=== PATIENT | male | born 1940 | race Caucasian/White ===

== ENCOUNTER 2018-05-17 09:20 | Inpatient (IN) ==
[2018-05-17] MEDS ORDERED: Sod Chloride 0.9% Inj 1,000 ML IV.SIG ONE (10:05)
[2018-05-17 10:21] LABS: Baso # (Auto) 0.1 th/mm3 (0.0-0.2); Eos # (Auto) 0.4 th/mm3 (0.0-0.4); Eos % (Auto) 4.6 % (0.0-4.0); Hematocrit 41.3 % (39.0-51.0); Hemoglobin 13.4 gm/dL (13.0-17.0); Lymph # (Auto) 2.2 th/mm3 (1.0-4.8); Lymph % (Auto) 22.6 % (9.0-44.0); Mean Corpuscular HGB Conc 32.4 % (32.0-36.0); Mean Corpuscular Hemoglobin 30.4 pg (27.0-34.0); Mean Corpuscular Volume 93.8 fL (80.0-100.0); Mean Platelet Volume 8.2 fL (7.0-11.0); Mono # (Auto) 0.8 th/mm3 (0.0-0.9); Mono % (Auto) 8.3 % (0.0-8.0); Neut # (Auto) 6.2 th/mm3 (1.8-7.7); Neut % (Auto) 63.5 % (16.0-70.0); Platelet Count 342 th/mm3 (150-450); Red Cell Distribution Width 12.1 % (11.6-17.2); White Blood Count 9.7 th/mm3 (4.0-11.0)
[2018-05-17 10:29] LABS: Bilirubin,Urine Negative (Negative); Clarity,Urine Cloudy (Clear); Color,Urine Yellow (Yellw/Straw); Glucose,Urine (UA) Negative (Negative); Leukocyte Esterase,Urine Moderate (Negative); Nitrite,Urine Negative (Negative); Specific Gravity,Urine Greater/Equal 1.030 (1.002-1.035); Urobilinogen,Urine 0.2 mg/dL (Less than 2)
[2018-05-17 10:34] LABS: Collection Time,Urine 1000 hours
[2018-05-17 10:35] LABS: Chloride 103 meq/L (98-107); Potassium 3.8 meq/L (3.5-5.1); Sodium 139 meq/L (136-145)
[2018-05-17 10:39] LABS: Albumin 3.9 g/dL (3.4-5.0); Anion Gap 7 meq/L (5-15); Calcium 8.6 mg/dL (8.5-10.1); Carbon Dioxide 29.3 meq/L (21.0-32.0); Glucose,Random 166 mg/dL (74-106); Lipase 78 U/L (73-393)
[2018-05-17 10:40] LABS: Blood Urea Nitrogen 21 mg/dL (7-18)
[2018-05-17 10:42] LABS: Alanine Aminotransferase 32 U/L (12-78); Aspartate Aminotransferase 22 U/L (15-37); Glomerular Filtration Rate 75 mL/min (>89)
[2018-05-17 10:45] LABS: Alkaline Phosphatase 54 U/L (45-117)
[2018-05-17 10:45] LABS: Squamous Epithelial Cell,Urine 0-5 /hpf (0-5)
[2018-05-17 10:46] LABS: Bacteria,Urine Occasional /hpf
[2018-05-17] MEDS ORDERED: Morphine Inj 4 MG/ML Vial IV.PUSH ONE (10:58)
[2018-05-17] MEDS ORDERED: Ketorolac Inj 30 MG/ML (IVP) Vial IV.PUSH ONE ×2 (10:58→18:27)
--- NOTE | 2018-05-17 11:07 | CT ---
EXAM DATE: 05/17/2018 10:52 AM EST AGE/SEX: 77 years / Male INDICATIONS: Left flank pain 2 weeks, Nausea, vomiting, diarrhea CLINICAL DATA: This is the patient's initial encounter. Patient reports that signs and symptoms have been present for 3 weeks and indicates a pain score of 10/10. MEDICAL/SURGICAL HISTORY: Diabetes. Hypertension. . Prostate surgery RADIATION DOSE: 6.31 CTDI (mGy) COMPARISON: [facility] [place] & [place]ELVIS W & W/O CONTRAST, 02/11/2015. . TECHNIQUE: Multiple contiguous axial images were obtained through the abdomen. Images were obtained using multiple row detector helical technique. Using automated exposure control and adjustment of the mA and/or kV according to patient size, radiation dose was kept as low as reasonably achievable to o btain optimal diagnostic quality images. DICOM format image data is available electronically for rev iew and comparison. Lack of IV contrast limits the diagnosis for certain organ pathology. FINDINGS: Lower Lungs: The visualized lower lungs are clear. Liver: The liver has a homogeneous density without space-occupying lesion. There is no dilation of th e biliary tree. Gallbladder is unremarkable. Spleen: Homogeneous density without enlargement. Pancreas: The pancreas is normal in size and shape. A few scattered calcifications are again noted t hroughout the pancreas. This is stable compared to the prior study. No focal or acute inflammatory ch anges are demonstrated associated with the pancreas. Kidneys: The right kidney is unremarkable. The left kidney is enlarged with perinephric edema. There is hydronephrosis of the left kidney. There is a prominent stone in the left renal pelvis measuring 1.5 x 0.8 cm. The ureters are nondilated. Adrenal Glands: Unremarkable. Aorta: Atherosclerotic changes. No aneurysmal dilatation. Bowel/Mesentery: The bowel loops are grossly unremarkable. The cecum and sigmoid colon have a normal configuration. No inflammatory changes. No free fluid or loculated fluid collections. Abdominal Wall: Intact. Retroperitoneum: No evidence of adenopathy in the retrocrural, para-aortic, or deep pelvic regions. Bladder: Contours are smooth. No stones in the bladder. Reproductive Organs: No abnormal masses or calcifications seen. Inguinal: The inguinal region is unremarkable without evidence of adenopathy. Bony Structures: Bony degenerative changes. CONCLUSION: 1. There is hydronephrosis and perinephric edema involving the left kidney. There is a prominent sto ne in the left renal pelvis measuring 1.5 x 0.8 cm. 2. A few stable calcifications are again noted in the pancreas suggestive of chronic pancreatitis. T his is unchanged from 2015. Electronically signed by: Corey Malcolm MD 05/17/2018 11:06 AM EST
--- NOTE | 2018-05-17 11:50 | ED ---
HPI General Chief Complaint: Abdominal Pain Stated Complaint: abd pain/lt flank pain/vomiting today/back pain Time Seen by Provider: 05/17/18 09:53 Source: patient Mode of arrival: ambulatory Limitations: no limitations History of Present Illness HPI narrative: Patient is a 77-year-old male, past medical history significant for hypertension, diabetes, hyper the anemia, who presents with complaint of sudden onset left flank pain that radiates to the left lower quadrant and came on suddenly at approximately 8 AM. Nothing seems to make it better or worse. It is constant but waxes and wanes in intensity. It is associated with nausea and nonbilious, nonbloody emesis. This has never happened before. complaint: Reports flank pain Onset (ago): hour(s) Pain Consistency: constant Location: Reports L flank Severity: severe Quality: Reports aching and fullness Radiation: Reports LUQ Relieving factors: nothing Exacerbating factors: nothing Associated symptoms: Reports nausea and vomiting Related Data Home Medications Medication Instructions Recorded Confirmed aspirin [Aspir-81] 81 mg PO DAILY 05/17/18 05/17/18 gabapentin 600 mg PO HS 05/17/18 05/17/18 losartan 50 mg PO BID 05/17/18 05/17/18 metformin 500 mg PO DAILY 05/17/18 05/17/18 pravastatin 40 mg PO HS 05/17/18 05/17/18 Allergies Allergy/AdvReac Type Severity Reaction Status Date / Time hydrocodone Allergy Mild Rash Verified 05/17/18 09:25 Review of Systems ROS: all other systems reviewed are negative [facility] Medical History Medical History Diabetes (Acute) Hypercholesteremia (Acute) Hypertension (Acute) Lung collapse (Acute) Neuropathy (Acute) Surgical History Surgical History History of prostate surgery (Acute) Social History Social History Substance History: No History of Abuse Second Hand Smoke Exposure: No Smoking Status: Former smoker How Often Do You Have a Drink Containing Alcohol: 2 to 3 times a week Recent Travel in [facility] within the Last 8 Weeks: No Immunization History Tetanus Immunization: <5 Years Exam Narrative Exam Narrative: GENERAL: Well-appearing male appearing in acute pain SKIN: Focused skin assessment warm/dry. HEAD: Atraumatic. Normocephalic. EYES: Pupils equal and round. No scleral icterus. No injection or drainage. ENT: No nasal bleeding or discharge. Mucous membranes pink and moist. NECK: Trachea midline. No JVD. CARDIOVASCULAR: Regular rate and rhythm. No murmur appreciated. RESPIRATORY: No accessory muscle use. Clear to auscultation. Breath sounds equal bilaterally. GASTROINTESTINAL: Abdomen soft, non-tender, nondistended. Hepatic and splenic margins not palpable. Left CVA tenderness. MUSCULOSKELETAL: No obvious deformities. No clubbing. No cyanosis. No edema. NEUROLOGICAL: Awake and alert. No obvious cranial nerve deficits. Motor grossly within normal limits. Normal speech. PSYCHIATRIC: Appropriate mood and affect; insight and judgment normal. Course Consultations Consultation #1: I spoke with Dr Brown, urologist collection card clerk, whom agreed with my plan for admission. Initial Documented Vital Signs Temperature 97.6 F 05/17/18 09:24 Pulse Rate 85 05/17/18 09:24 Respiratory Rate 16 05/17/18 09:24 Blood Pressure 189/88 H 05/17/18 09:24 Pulse Oximetry 97 05/17/18 09:24 Last Documented Vital Signs Temperature 97.6 F 05/17/18 09:24 Pulse Rate 62 05/17/18 12:15 Respiratory Rate 18 05/17/18 12:15 Blood Pressure 172/78 H 05/17/18 12:15 Pulse Oximetry 97 05/17/18 12:15 Medical Decision Making MDM Narrative Medical decision making narrative: Patient is a 77-year-old male who presents with complaint of sudden onset left flank pain with nausea and vomiting. He is feeling slightly better after morphine and Toradol. UA is concerning for infection for which he has been given Rocephin. CT does show a stone in the renal pelvis which is very large. I discussed this infected, obstructed stone with Dr. Brown whom stated that because it is in the renal pelvis, he needs more pain control and antibiotics than anything else. He has been admitted for further evaluation and management. Medical Screen Exam Complete: Yes Emergency Medical Condition: Yes Differential Diagnosis Differential Diagnosis: Differential diagnosis includes but is not limited to pyelonephritis, renal colic, AAA. Medical Records Medical records reviewed: Yes I reviewed the patient's medical records. Lab Data Lab results reviewed: Yes I reviewed the patient's lab results. Result diagrams: 05/17/18 10:08 05/17/18 10:08 Lab Results 05/17/18 05/17/18 05/17/18 Range/Units 10:00 10:08 10:08 CBC w Diff Auto diff final WBC 9.7 (4.0-11.0) th/mm3 RBC 4.40 L (4.50-5.90) mil/mm3 Hgb 13.4 (13.0-17.0) gm/dL Hct 41.3 (39.0-51.0) % MCV 93.8 (80.0-100.0) fL MCH 30.4 (27.0-34.0) pg MCHC 32.4 (32.0-36.0) % RDW 12.1 (11.6-17.2) % Plt Count 342 (150-450) th/mm3 MPV 8.2 (7.0-11.0) fL Neut % (Auto) 63.5 (16.0-70.0) % Lymph % (Auto) 22.6 (9.0-44.0) % [place] % (Auto) 8.3 H (0.0-8.0) % Eos % (Auto) 4.6 H (0.0-4.0) % Baso % (Auto) 1.0 (0.0-2.0) % Neut # (Auto) 6.2 (1.8-7.7) th/mm3 Lymph # (Auto) 2.2 (1.0-4.8) th/mm3 [place] # (Auto) 0.8 (0.0-0.9) th/mm3 Eos # (Auto) 0.4 (0.0-0.4) th/mm3 Baso # (Auto) 0.1 (0.0-0.2) th/mm3 WBC Differential . Differential Comment . Sodium 139 (136-145) meq/L Potassium 3.8 (3.5-5.1) meq/L Chloride 103 (98-107) meq/L Carbon Dioxide 29.3 (21.0-32.0) meq/L Anion Gap 7 (5-15) meq/L BUN 21 H (7-18) mg/dL Creatinine 0.97 (0.60-1.30) mg/dL Estimated GFR 75 L (>89) mL/min Random Glucose 166 H (74-106) mg/dL Calcium 8.6 (8.5-10.1) mg/dL Magnesium 2.0 (1.5-2.5) mg/dL Total Bilirubin 0.6 (0.2-1.0) mg/dL AST 22 (15-37) U/L ALT 32 (12-78) U/L Alkaline Phosphatase 54 (45-117) U/L Total Protein 8.0 (6.4-8.2) g/dL Albumin 3.9 (3.4-5.0) g/dL Lipase 78 (73-393) U/L Urine Color Yellow (Yellw/Straw) Urine Clarity Cloudy H (Clear) Urine pH 6.0 (5.0-8.5) Ur Specific [place] Greater/equal 1.030 (1.002-1.035) Urine Protein 100 H (Neg-Trace) mg/dL Urine Glucose (UA) Negative (Negative) mg/dL Urine Ketones Negative (Negative) mg/dL Urine Occult Blood Large H (Negative) Urine Nitrate Negative (Negative) Urine Bilirubin Negative (Negative) Urine Urobilinogen 0.2 (Less than 2) mg/dL Ur Leukocyte Esterase Moderate H (Negative) Urine RBC 4-15 H (0-3) /hpf Urine WBC 9-20 H (0-5) /hpf Urine WBC Clumps Few H (None) Ur Squamous Epith Cells 0-5 (0-5) /hpf Urine Bacteria Occasional H (None) /hpf Micro UA Comment Culture indicated Ur Microscopic Review Microscopic reviewed Urine Culture Comments Culture indicated Urine Collection Time 1000 hours Imaging Data Attestation: I personally reviewed and interpreted this imaging study as follows : Radiologist's impression: Abdomen/Pelvis CT 05/17/18 10:05 CONCLUSION: 1. There is hydronephrosis and perinephric edema involving the left kidney. There is a prominent stone in the left renal pelvis measuring 1.5 x 0.8 cm. 2. A few stable calcifications are again noted in the pancreas suggestive of chronic pancreatitis. This is unchanged from 2015. Discharge Plan Discharge Disposition Patient Disposition: 30 Still Patient Discharge Condition Condition: Stable Discharge Details Diagnosis: Renal calculus, left, Acute UTI Physicians Team ED Provider: Erika Barker Primary Care Provider: Vitor Lawson Attending Provider: Shad Wheeler ED Status: Admitted Patient
[2018-05-17] MEDS ORDERED: Bisacodyl 10 MG Supp RECTAL PRN (12:13)
[2018-05-17] MEDS ORDERED: Acetaminophen 325 MG Tablet PO PRN (12:13)
[2018-05-17] MEDS ORDERED: Morphine Inj 4 MG/ML Vial IV.PUSH PRN (14:06)
[2018-05-17] MEDS ORDERED: Dextrose 50% in Water 50 ML Vial IV.PUSH PRN (14:11)
[2018-05-17] MEDS: Sod Chloride 0.9% Inj 1,000 ML IV.CONT SCH ×2 (14:20→23:16)
--- NOTE | 2018-05-17 14:20 | P.HPIM ---
History of Present Illness Primary Care Physician: Vitor Lawson MD Patient is a 77M with history of DM2 and HTN presenting with LEFT sided lower back pain. Patient reports symptoms started 3 weeks ago and he thought it was due to backpain from golfing but says on day of presentation he developed a 10/ 10, sharp, severe lower back pain non radiating to the groin. Patient reports he also had nausea, non billious, non bloody emesis. Patient denied subjective fever or chills. No hematuria noted. R.O.S otherwise negative. In ED patient noted to have 1.5cm stone for which ED consulted urology for evaluation. Patient admitted to medicine for evaluation and management. Patient started on ceftriaxone and blood/urine cultures obtained. Diagnosis (1) HTN (hypertension): (2) DM2 (diabetes mellitus, type 2): Inpatient Certification Inpatient Certification: I certify that the inpatient services were ordered in accordance with Medicare regulations governing the order. This includes certification that hospital inpatient services are reasonable and necessary and in the case of services not specified as inpatient-only under 42 CFR 419.22(n), that they are appropriately provided as inpatient services in accordance to with the 2-midnight benchmark under 43 CFR 412.3(e) Estimated Total Length of Stay (Days): 3 Plans for Post Hospital Care: Home Review of Systems Review of Systems: all other systems reviewed are negative [facility] Medical History Medical History Diabetes (Acute) Hypercholesteremia (Acute) Hypertension (Acute) Lung collapse (Acute) Neuropathy (Acute) Surgical History Surgical History History of prostate surgery (Acute) Social History Social History Substance History: No History of Abuse Second Hand Smoke Exposure: No Smoking Status: Former smoker How Often Do You Have a Drink Containing Alcohol: 2 to 4 times a month Recent Travel in [facility] within the Last 8 Weeks: No Immunization History Tetanus Immunization: Unable to Assess Hx Influenza Vaccine This Season: Yes Medications and Allergies Allergies Allergy/AdvReac Type Severity Reaction Status Date / Time hydrocodone Allergy Mild Rash Verified 05/17/18 09:25 Home Medications Medication Instructions Recorded Confirmed Type aspirin [Aspir-81] 81 mg PO DAILY 05/17/18 05/17/18 History gabapentin 600 mg PO HS 05/17/18 05/17/18 History losartan 50 mg PO BID 05/17/18 05/17/18 History metformin 500 mg PO DAILY 05/17/18 05/17/18 History pravastatin 40 mg PO HS 05/17/18 05/17/18 History Active Medications: Active Medications Acetaminophen (Tylenol) 650 mg PO Q4H PRN PRN Reason: Temp > 100.4 Al Hydroxide/Mg Hydroxide (Milk Of Mellisa Liileana) 30 ml PO Q12H PRN PRN Reason: Mild Constipation Aspirin (Ecotrin) 81 mg PO DAILY ARABELLA Bisacodyl (Dulcolax Supp) 10 mg RECTAL DAILY PRN PRN Reason: SEVERE CONSITIPATION Dextrose (D50w Vial) 50 ml IV.PUSH UNSCH PRN PRN Reason: PER HYPOGLYCEMIA PROTOCOL Gabapentin (Neurontin) 600 mg PO HS [facility] Glucagon (Glucagon Inj) 1 mg OTHER PRN PRN PRN Reason: for Hypoglycemia Protocol Heparin Sodium (Porcine) (Heparin Inj) 5,000 units SQ Q8H ARABELLA Sodium Chloride (Ns Inj) 1,000 mls @ 100 mls/hr IV.CONT .Q10H ARABELLA Acetaminophen (Ofirmev Inj) 1,000 mg in 100 mls @ 400 mls/hr IV.SIG Q6H PRN PRN Reason: BREAKTHROUGH PAIN Stop: 05/18/18 08:22 Insulin Aspart (Novolog Insulin Correctional Sugar Inj) 0 unit SQ ACHS ARABELLA; Protocol Losartan Potassium (Cozaar) 50 mg PO BID [facility] Morphine Sulfate (Morphine Inj) 4 mg IV.PUSH Q4H PRN PRN Reason: PAIN SCALE 1 TO 10 Ondansetron HCl (Zofran Inj) 4 mg IV.PUSH Q6H PRN PRN Reason: NAUSEA OR VOMITING Pravastatin Sodium (Pravachol) 40 mg PO HS [facility] Senna/Docusate Sodium (Marilee-Colace) 1 tab PO BID [facility] Sennosides (Senokot) 17.2 mg PO Q12H PRN PRN Reason: Moderate Constipation Sodium Chloride (Ns Flush) 2 ml IV.FLUSH PRN PRN PRN Reason: FLUSH AFTER USING IV ACCESS Sodium Chloride (Ns Flush) 2 ml IV.FLUSH BID [facility] Sodium Chloride (Ns Flush) 2 ml IV.FLUSH PRN PRN PRN Reason: FLUSH AFTER USING IV ACCESS Physical Exam Vital signs: Last Vital Signs Temp 96.4 F L 05/17/18 13:05 Pulse 59 L 05/17/18 13:05 Resp 20 05/17/18 13:05 BP 183/80 H 05/17/18 13:05 Pulse Ox 97 05/17/18 13:05 Intake & Output 05/15/18 05/16/18 05/17/18 05/18/18 06:59 06:59 06:59 06:59 Intake Total 1100 / 1100 Balance 1100 / 1100 Weight 79 kg gen: NAD heent: EOMI, PERRLA Cardiology: S1/S2 Resp: CTA without wheezing, rhales, rhonchi GI: soft, non tender, non distended, no guarding. + bowel sounds ext: 2+ radial pulse. Urology: I did not appreciate a true CVA tenderness but he did have pain medication earlier. Results Labs CBC & Chem 7: 05/17/18 10:08 05/17/18 10:08 Imaging Impressions Abdomen/Pelvis CT 05/17/18 10:05 CONCLUSION: 1. There is hydronephrosis and perinephric edema involving the left kidney. There is a prominent stone in the left renal pelvis measuring 1.5 x 0.8 cm. 2. A few stable calcifications are again noted in the pancreas suggestive of chronic pancreatitis. This is unchanged from 2015. Caprini VTE Risk Assessment Caprini VTE Risk Assessment: No/Low Risk (score <= 1) Caprini Risk Assessment Model: Point Value = 1 Point Value = 2 Point Value = 3 Point Value = 5 Age 41-60 Minor surgery BMI > 25 kg/m2 Swollen legs Varicose veins or History of unexplained or recurrent spontaneous Oral contraceptives or hormone replacement Sepsis (< 1 month) Serious lung disease, including pneumonia (< 1 month) Abnormal pulmonary function Acute myocardial infarction Congestive heart failure (< 1 month) History of inflammatory bowel disease Medical patient at bed rest Age 61-74 Arthroscopic surgery Major open surgery (> 45 min) Laparoscopic surgery (> 45 min) Malignancy Confined to bed (> 72 hours) Immobilizing plaster cast Central venous access Age >= 75 History of VTE Family history of VTE Factor V Leiden Prothrombin [id number] Lupus anticoagulant Anticardiolipin antibodies Elevated serum homocysteine Heparin-induced thrombocytopenia Other congenital or acquired thrombophilia Stroke (< 1 month) Elective arthroplasty Hip, pelvis, or leg fracture Acute spinal cord injury (< 1 month) Prophylaxis Regimen: Total Risk Factor Score Risk Level Prophylaxis Regimen 0-1 Low Early ambulation 2 Moderate Order ONE of the following: *Sequential Compression Device (SCD) *Heparin 5000 units SQ BID 3-4 Higher Order ONE of the following medications: *Heparin 5000 units SQ TID *Enoxaparin/Lovenox 40 mg SQ daily (WT < 150 kg, CrCl > 30 mL/min) *Enoxaparin/Lovenox 30 mg SQ daily (WT < 150 kg, CrCl > 10-29 mL/min) *Enoxaparin/Lovenox 30 mg SQ BID (WT < 150 kg, CrCl > 30 mL/min) AND/OR *Sequential Compression Device (SCD) 5 or more Highest Order ONE of the following medications: *Heparin 5000 units SQ TID (Preferred with Epidurals) *Enoxaparin/Lovenox 40 mg SQ daily (WT < 150 kg, CrCl > 30 mL/min) *Enoxaparin/Lovenox 30 mg SQ daily (WT < 150 kg, CrCl > 10-29 mL/min) *Enoxaparin/Lovenox 30 mg SQ BID (WT < 150 kg, CrCl > 30 mL/min) AND *Sequential Compression Device (SCD) Assessment and Plan (1) HTN (hypertension): Code(s): I10 - Essential (primary) hypertension Status: Acute (2) DM2 (diabetes mellitus, type 2): Code(s): E11.9 - Type 2 diabetes mellitus without complications Status: Acute Plan Infectious disease: Infected renal stone Ceftriaxone 1 g every 24 Follow-up cultures until antibiotics Urology consulted by emergency department recommendations to be appreciated -The likelihood of spontaneous passage of a ureteral stone is related to both stone size and location. Most stones >4 mm in diameter pass spontaneously. For stones larger than 4 mm in diameter, there is a progressive decrease in the spontaneous passage rate, which is unlikely with stones >10 mm in diameter Pain control morphine 4 mg as needed Zofran PRN nausea Cardiovascular: Hypertension, hyperlipidemia Continue losartan 50 mg twice daily, pravastatin 40 mg at bedtime, aspirin 81 mg daily Endocrinology: Diabetes type 2 Hold oral hypoglycemic medications while inpatient Blood glucose monitoring before meals at bedtime with correction as needed Gabapentin 600 mg at bedtime for neuropathy CODE STATUS: Full code DVT prophylaxis Disposition: MedSurg Diet: Diabetic H&P: Quality VTE Deep Vein Thrombosis/Pulmonary Embolism Present on Admission: No
[2018-05-17] MEDS: Heparin - SQ 10,000 UNITS/ML Vial SQ SCH ×2 (14:24→20:35)
[2018-05-17] MEDS: Insulin NovoLOG Aspart Correctional Sugar Inj SQ SCH ×2 (16:36→20:39)
[2018-05-17] MEDS: Senna/Docusate Sodium 8.6/50 MG Tablet PO SCH (20:38)
[2018-05-17] MEDS ORDERED: Gabapentin 300 MG Capsule PO SCH (21:00)
[2018-05-18] MEDS: Insulin NovoLOG Aspart Correctional Sugar Inj SQ SCH ×2 (07:31→11:16)
[2018-05-18 08:34] LABS: Baso % (Auto) 0.2 % (0.0-2.0); Eos # (Auto) 0.4 th/mm3 (0.0-0.4); Eos % (Auto) 3.5 % (0.0-4.0); Hemoglobin 11.6 gm/dL (13.0-17.0); Lymph # (Auto) 1.7 th/mm3 (1.0-4.8); Lymph % (Auto) 14.6 % (9.0-44.0); Mean Corpuscular HGB Conc 33.2 % (32.0-36.0); Mean Corpuscular Hemoglobin 30.8 pg (27.0-34.0); Mean Corpuscular Volume 92.8 fL (80.0-100.0); Mean Platelet Volume 8.1 fL (7.0-11.0); Mono # (Auto) 1.3 th/mm3 (0.0-0.9); Mono % (Auto) 11.4 % (0.0-8.0); Neut # (Auto) 7.9 th/mm3 (1.8-7.7); Neut % (Auto) 70.3 % (16.0-70.0); Platelet Count 253 th/mm3 (150-450); Red Blood Count 3.77 mil/mm3 (4.50-5.90); White Blood Count 11.3 th/mm3 (4.0-11.0)
[2018-05-18] MEDS: Senna/Docusate Sodium 8.6/50 MG Tablet PO SCH (08:44)
[2018-05-18 08:53] LABS: Chloride 105 meq/L (98-107); Potassium 3.8 meq/L (3.5-5.1); Sodium 140 meq/L (136-145)
[2018-05-18 09:09] LABS: Alanine Aminotransferase 23 U/L (12-78); Albumin 3.1 g/dL (3.4-5.0); Alkaline Phosphatase 42 U/L (45-117); Anion Gap 7 meq/L (5-15); Aspartate Aminotransferase 20 U/L (15-37); Blood Urea Nitrogen 24 mg/dL (7-18); Calcium 7.6 mg/dL (8.5-10.1); Carbon Dioxide 27.6 meq/L (21.0-32.0); Glomerular Filtration Rate 65 mL/min (>89); Glucose,Random 125 mg/dL (74-106); Total Protein 6.5 g/dL (6.4-8.2)
--- NOTE | 2018-05-18 09:35 | P.CONURO ---
History of Present Illness Primary Care Provider: Vitor Lawson MD [facility] - History History Provided By: Patient - Medical History Medical History: Medical History (Last Reviewed 05/17/18 @ 14:21 by Shad Wheeler MD) Diabetes Hypercholesteremia Hypertension Lung collapse Neuropathy - Surgical History Surgical History: Surgical History (Last Reviewed 05/17/18 @ 14:21 by Shad Wheeler MD) History of prostate surgery - Tobacco History Second Hand Smoke Exposure: No Tobacco Use In Past 30 Days: No (QUIT 1997) Smoking Status: Former smoker - Alcohol History How Often Do You Have a Drink Containing Alcohol: 2 to 4 times a month - Substance Use History Substance History: No History of Abuse - Travel History Recent Travel in the [facility] Within the Last 8 Weeks: No - Immunization History Tetanus Immunization: Unable to Assess Hx Influenza Vaccine This Season: Yes Medications and Allergies Active Medications: Active Medications Acetaminophen (Tylenol) 650 mg PO Q4H PRN PRN Reason: Temp > 100.4 Al Hydroxide/Mg Hydroxide (Milk Of Magnwilly Liq) 30 ml PO Q12H PRN PRN Reason: Mild Constipation Aspirin (Ecotrin) 81 mg PO DAILY [facility] Last Admin: 05/18/18 08:43 Dose: 81 mg Bisacodyl (Dulcolax Supp) 10 mg RECTAL DAILY PRN PRN Reason: SEVERE CONSITIPATION Dextrose (D50w Vial) 50 ml IV.PUSH UNSCH PRN PRN Reason: PER HYPOGLYCEMIA PROTOCOL Enalaprilat (Vasotec Inj) 2.5 mg IV.PUSH Q6H PRN PRN Reason: SBP>160, DBP>90 Last Admin: 05/17/18 16:36 Dose: 2.5 mg Gabapentin (Neurontin) 600 mg PO HS [facility] Last Admin: 05/17/18 20:36 Dose: 600 mg Glucagon (Glucagon Inj) 1 mg OTHER PRN PRN PRN Reason: for Hypoglycemia Protocol Heparin Sodium (Porcine) (Heparin Inj) 5,000 units SQ Q8H [facility] Last Admin: 05/17/18 20:35 Dose: 5,000 units Sodium Chloride (Ns Inj) 1,000 mls @ 100 mls/hr IV.CONT .Q10H [facility] Last Admin: 05/17/18 23:16 Dose: 100 mls/hr Ceftriaxone Sodium 1,000 mg/ (Sodium Chloride) 100 mls @ 200 mls/hr IV.SIG Q24H [facility] Insulin Aspart (Novolog Insulin Correctional Sugar Inj) 0 unit SQ ACHS [facility]; Protocol Last Admin: 05/18/18 07:31 Dose: Not Given Losartan Potassium (Cozaar) 50 mg PO BID [facility] Last Admin: 05/18/18 08:44 Dose: 50 mg Morphine Sulfate (Morphine Inj) 4 mg IV.PUSH Q4H PRN PRN Reason: PAIN SCALE 1 TO 10 Last Admin: 05/17/18 15:09 Dose: 4 mg Ondansetron HCl (Zofran Inj) 4 mg IV.PUSH Q6H PRN PRN Reason: NAUSEA OR VOMITING Pravastatin Sodium (Pravachol) 40 mg PO [facility] Last Admin: 05/17/18 20:36 Dose: 40 mg Senna/Docusate Sodium (Marilee-Colace) 1 tab PO BID [facility] Last Admin: 05/18/18 08:44 Dose: 1 tab Sennosides (Senokot) 17.2 mg PO Q12H PRN PRN Reason: Moderate Constipation Sodium Chloride (Ns Flush) 2 ml IV.FLUSH PRN PRN PRN Reason: FLUSH AFTER USING IV ACCESS Sodium Chloride (Ns Flush) 2 ml IV.FLUSH BID [facility] Last Admin: 05/17/18 20:40 Dose: Not Given Sodium Chloride (Ns Flush) 2 ml IV.FLUSH PRN PRN PRN Reason: FLUSH AFTER USING IV ACCESS Allergies Allergy/AdvReac Type Severity Reaction Status Date / Time hydrocodone Allergy Mild Rash Verified 05/17/18 09:25 Home Medications Medication Instructions Recorded Confirmed Type aspirin [Aspir-81] 81 mg PO DAILY 05/17/18 05/17/18 History gabapentin 600 mg PO HS 05/17/18 05/17/18 History losartan 50 mg PO BID 05/17/18 05/17/18 History metformin 500 mg PO DAILY 05/17/18 05/17/18 History pravastatin 40 mg PO HS 05/17/18 05/17/18 History Physical Exam Vital Signs - 24 hr 05/17/18 11:10 05/17/18 12:15 05/17/18 13:05 Temperature 96.4 F L Pulse Rate 63 62 59 L Respiratory Rate 18 18 20 Blood Pressure 207/87 H 172/78 H 183/80 H Pulse Oximetry 99 97 97 05/17/18 16:00 05/17/18 17:50 05/17/18 20:00 Temperature 97.3 F L 97.8 F Pulse Rate 60 67 Respiratory Rate 20 20 Blood Pressure 196/84 H 183/82 H 148/67 H Pulse Oximetry 97 97 05/18/18 00:00 05/18/18 08:00 Temperature 96.9 F L 97.0 F L Pulse Rate 59 L 82 Respiratory Rate 18 15 Blood Pressure 119/71 153/68 H Pulse Oximetry 96 98 Physical Exam: GENERAL: This is a well-nourished, well-developed patient, in no apparent distress. SKIN: No rashes, ecchymoses or lesions. Cool and dry. HEAD: Atraumatic. Normocephalic. No temporal or scalp tenderness. EYES: Pupils equal round and reactive. Extraocular motions intact. No scleral icterus. No injection or drainage. ENT: Nose without bleeding, purulent drainage or septal hematoma. Throat without erythema, tonsillar hypertrophy or exudate. Uvula midline. Airway patent. NECK: Trachea midline. No JVD or lymphadenopathy. Supple, nontender, no meningeal signs. CARDIOVASCULAR: Regular rate and rhythm without murmurs, gallops, or rubs. RESPIRATORY: Clear to auscultation. Breath sounds equal bilaterally. No wheezes , rales, or rhonchi. GASTROINTESTINAL: Abdomen soft, non-tender, nondistended. No hepato-splenomegaly , or palpable masses. No guarding. GENITOURINARY: MUSCULOSKELETAL: Extremities without clubbing, cyanosis, or edema. No joint tenderness, effusion, or edema noted. No calf tenderness. Negative Homans sign bilaterally. NEUROLOGICAL: Awake and alert. Cranial nerves II through XII intact. Motor and sensory grossly within normal limits. Five out of 5 muscle strength in all muscle groups. Normal speech. Laboratory Results - last 24 hr 05/17/18 05/17/18 05/17/18 10:00 10:08 10:08 CBC w Diff Auto diff final WBC 9.7 RBC 4.40 L Hgb 13.4 Hct 41.3 MCV 93.8 MCH 30.4 MCHC 32.4 RDW 12.1 Plt Count 342 MPV 8.2 Neut % (Auto) 63.5 Lymph % (Auto) 22.6 Callahan % (Auto) 8.3 H Eos % (Auto) 4.6 H Baso % (Auto) 1.0 Neut # (Auto) 6.2 Lymph # (Auto) 2.2 Callahan # (Auto) 0.8 Eos # (Auto) 0.4 Baso # (Auto) 0.1 WBC Differential . Differential Comment . Sodium 139 Potassium 3.8 Chloride 103 Carbon Dioxide 29.3 Anion Gap 7 BUN 21 H Creatinine 0.97 Estimated GFR 75 L POC Glucose Random Glucose 166 H Calcium 8.6 Magnesium 2.0 Total Bilirubin 0.6 AST 22 ALT 32 Alkaline Phosphatase 54 Total Protein 8.0 Albumin 3.9 Lipase 78 Urine Color Yellow Urine Clarity Cloudy H Urine pH 6.0 Ur Specific [place] Greater/equal 1.030 Urine Protein 100 H Urine Glucose (UA) Negative Urine Ketones Negative Urine Occult Blood Large H Urine Nitrate Negative Urine Bilirubin Negative Urine Urobilinogen 0.2 Ur Leukocyte Esterase Moderate H Urine RBC 4-15 H Urine WBC 9-20 H Urine WBC Clumps Few H Ur Squamous Epith Cells 0-5 Urine Bacteria Occasional H Micro UA Comment Culture indicated Ur Microscopic Review Microscopic reviewed Urine Culture Comments Culture indicated Urine Collection Time 1000 05/17/18 05/17/18 05/18/18 16:35 20:25 07:11 CBC w Diff Auto diff final WBC 11.3 H RBC 3.77 L Hgb 11.6 L Hct 35.0 L MCV 92.8 MCH 30.8 MCHC 33.2 RDW 12.0 Plt Count 253 MPV 8.1 Neut % (Auto) 70.3 H Lymph % (Auto) 14.6 Callahan % (Auto) 11.4 H Eos % (Auto) 3.5 Baso % (Auto) 0.2 Neut # (Auto) 7.9 H Lymph # (Auto) 1.7 Callahan # (Auto) 1.3 H Eos # (Auto) 0.4 Baso # (Auto) 0.0 WBC Differential . Differential Comment . Sodium Potassium Chloride Carbon Dioxide Anion Gap BUN Creatinine Estimated GFR POC Glucose 136 H 157 H Random Glucose Calcium Magnesium Total Bilirubin AST ALT Alkaline Phosphatase Total Protein Albumin Lipase Urine Color Urine Clarity Urine pH Ur Specific [place] Urine Protein Urine Glucose (UA) Urine Ketones Urine Occult Blood Urine Nitrate Urine Bilirubin Urine Urobilinogen Ur Leukocyte Esterase Urine RBC Urine WBC Urine WBC Clumps Ur Squamous Epith Cells Urine Bacteria Micro UA Comment Ur Microscopic Review Urine Culture Comments Urine Collection Time 05/18/18 05/18/18 07:11 07:29 CBC w Diff WBC RBC Hgb Hct MCV MCH MCHC RDW Plt Count MPV Neut % (Auto) Lymph % (Auto) Callahan % (Auto) Eos % (Auto) Baso % (Auto) Neut # (Auto) Lymph # (Auto) Callahan # (Auto) Eos # (Auto) Baso # (Auto) WBC Differential Differential Comment Sodium 140 Potassium 3.8 Chloride 105 Carbon Dioxide 27.6 Anion Gap 7 BUN 24 H Creatinine 1.10 Estimated GFR 65 L POC Glucose 121 H Random Glucose 125 H Calcium 7.6 L D Magnesium Total Bilirubin 0.7 AST 20 ALT 23 Alkaline Phosphatase 42 L Total Protein 6.5 D Albumin 3.1 L D Lipase Urine Color Urine Clarity Urine pH Ur Specific [place] Urine Protein Urine Glucose (UA) Urine Ketones Urine Occult Blood Urine Nitrate Urine Bilirubin Urine Urobilinogen Ur Leukocyte Esterase Urine RBC Urine WBC Urine WBC Clumps Ur Squamous Epith Cells Urine Bacteria Micro UA Comment Ur Microscopic Review Urine Culture Comments Urine Collection Time Result Diagrams: 05/18/18 07:11 05/18/18 07:11 Imaging: ITS Impressions Abdomen/Pelvis CT 05/17/18 10:05 CONCLUSION: 1. There is hydronephrosis and perinephric edema involving the left kidney. There is a prominent stone in the left renal pelvis measuring 1.5 x 0.8 cm. 2. A few stable calcifications are again noted in the pancreas suggestive of chronic pancreatitis. This is unchanged from 2015. Assessment and Plan - Plan 77 yo male with 1.5 cm Left Renal Stone, low back pain -Recommend antibiotics, pain control -Will treat stone as outpatient -His low back seems more musculoskeletal. Recommend MRI Lumbar Spine -OK to d/c home. -Thank you for consult
[2018-05-18] MEDS: Heparin - SQ 10,000 UNITS/ML Vial SQ SCH ×2 (09:58→12:10)
[2018-05-18] MEDS: Sod Chloride 0.9% Inj 1,000 ML IV.CONT SCH (09:58)
--- NOTE | 2018-05-18 12:11 | MR ---
EXAM DATE: 05/18/2018 12:03 PM EST AGE/SEX: 77 years / Male INDICATIONS: Pain. CLINICAL DATA: This is the patient's initial encounter. Patient reports that signs and symptoms have been present for 1 day and indicates a pain score of 4/10. MEDICAL/SURGICAL HISTORY: Carcinoma, prostatic. Diabetes mellitus type II. Hypertension. Pros tatectomy. Rotator cuff, right. COMPARISON: No prior exams available for comparison. TECHNIQUE: Multiplanar, multisequence MRI of the lumbar spine was performed without contrast. Patie nt was scanned in a sitting position; neutral, flexion, and extension scans were performed in the sa gittal plane. FINDINGS: Vertebra: Homogeneous signal. Normal alignment. Mild primary degenerative changes are present. Ther e is disc dehydration throughout the lumbar spine. There is some mild disc space narrowing at L1-2 an d L4-5. No compression fracture injuries are demonstrated. Conus: Normal level and configuration. T12-L1: The thecal sac has a normal diameter. No evidence of disc bulge or protrusion. The neural foramina are patent bilaterally. L1-L2: Mild broad-based bulging. The neural foramina are patent bilaterally. Mild facet arthritis. L2-L3: The thecal sac has a normal diameter. No evidence of disc bulge or protrusion. The neural foramina are patent bilaterally. Mild facet arthritis. L3-L4: The thecal sac has a normal diameter. No evidence of disc bulge or protrusion. The neural foramina are patent bilaterally. Mild facet arthritis. L4-L5: Mild diffuse broad-based bulging with mild narrowing of the neural foramina bilaterally. Yoseph ateral facet arthritis. No significant spinal canal stenosis. L5-S1: Mild diffuse broad-based bulging and focal central disc bulging/protrusion with mild narrowi ng of the neural foramina bilaterally. Bilateral facet arthritis. No significant spinal canal stenosi s. CONCLUSION: 1. Mild diffuse broad-based bulging and focal central disc bulging/protrusion at L5-S1. 2. Broad-based bulging at L1-2 and L4-5. 3. Bilateral facet arthritis at multiple levels. 4. Primary bony degenerative changes. Electronically signed by: Corey Malcolm MD 05/18/2018 12:09 PM EST
--- NOTE | 2018-05-18 15:09 | P.DS ---
DS: Providers Date of admission: 05/17/18 12:14 Primary care physician: Vitor Lawson MD Consults: 05/17/18 12:12 Consult to Urology Stat Consulting Provider: Nathan Brown For STAT consult, spoke directly to:: Stephanie Reason for Consultation: Infected Obstructed Stone Notified:: Service Spoke with:: addison Date Notified:: 05/17/18 Time Notified:: 12:26 Ordering Provider: SOHAM 05/18/18 14:55 HUB Only Consult Order Routine Consulting Provider: Mignon Crow DS: Diagnosis Discharge Diagnosis (1) HTN (hypertension): Status: Acute (2) DM2 (diabetes mellitus, type 2): Status: Acute DS: Summary Patient admitted to hospital where the following treatments and services were provided. Urology consulted and recommended outpatient follow up and treatment of stone. Patient to be discharged on PO levaquin until scheduled follow up. Patient with MRI lumbar spine for back pain with only mild disk bulging and no evidence of spinal stenosis. Conservative management recommended. Patient stable from medical viewpoint for discharge and outpatient follow up. Pain control with ibuprofen preferred after discussion with patient. UCx obtained did not grow after 1 day. Call to lab and they will re-incubate to see if growth develops however in these circumstances generally come back as contaminants. Case discussed with patient and recommended close follow up with urology outpatient. Time Spent with Patient Total time spent providing and/or coordinating discharge services: > 45 minutes Patient admitted to hospital where the following treatments and services were provided. Urology consulted and recommended outpatient follow up and treatment of stone. Patient to be discharged on PO levaquin until scheduled follow up. Patient with MRI lumbar spine for back pain with only mild disk bulging and no evidence of spinal stenosis. Conservative management recommended. Patient stable from medical viewpoint for discharge and outpatient follow up. Pain control with ibuprofen preferred after discussion with patient. UCx obtained did not grow after 1 day. Call to lab and they will re-incubate to see if growth develops however in these circumstances generally come back as contaminants. Case discussed with patient and recommended close follow up with urology outpatient. Quality: VTE Deep Vein Thrombosis/Pulmonary Embolism Present on Admission: No Exam Narrative Exam Narrative: gen: nad, conversational heent: eomi cvs: s1/s2 resp: cta bilaterally gi: soft, non tender, non distended, no guarding msk: minimal paraspinal muscular tenderness ext: 2+ radial pulse, no calf tenderness urology: very very minimal tenderness along flank. Results Labs on day of discharge: Labs from last 24 hours 05/18/18 05/18/18 05/18/18 11:06 07:29 07:11 CBC w Diff WBC RBC Hgb Hct MCV MCH MCHC RDW Plt Count MPV Neut % (Auto) Lymph % (Auto) Yates % (Auto) Eos % (Auto) Baso % (Auto) Neut # (Auto) Lymph # (Auto) Yates # (Auto) Eos # (Auto) Baso # (Auto) WBC Differential Differential Comment Sodium 140 Potassium 3.8 Chloride 105 Carbon Dioxide 27.6 Anion Gap 7 BUN 24 H Creatinine 1.10 Estimated GFR 65 L POC Glucose 126 H 121 H Random Glucose 125 H Calcium 7.6 L D Total Bilirubin 0.7 AST 20 ALT 23 Alkaline Phosphatase 42 L Total Protein 6.5 D Albumin 3.1 L D 05/18/18 05/17/18 05/17/18 07:11 20:25 16:35 CBC w Diff Auto diff final WBC 11.3 H RBC 3.77 L Hgb 11.6 L Hct 35.0 L MCV 92.8 MCH 30.8 MCHC 33.2 RDW 12.0 Plt Count 253 MPV 8.1 Neut % (Auto) 70.3 H Lymph % (Auto) 14.6 Yates % (Auto) 11.4 H Eos % (Auto) 3.5 Baso % (Auto) 0.2 Neut # (Auto) 7.9 H Lymph # (Auto) 1.7 Yates # (Auto) 1.3 H Eos # (Auto) 0.4 Baso # (Auto) 0.0 WBC Differential . Differential Comment . Sodium Potassium Chloride Carbon Dioxide Anion Gap BUN Creatinine Estimated GFR POC Glucose 157 H 136 H Random Glucose Calcium Total Bilirubin AST ALT Alkaline Phosphatase Total Protein Albumin Preliminary micro results at discharge 05/17/18 10:00 Urine Culture - Preliminary Clean Catch Urine Immature growth - reincubate Impressions ITS Impressions Abdomen/Pelvis CT 05/17/18 10:05 CONCLUSION: 1. There is hydronephrosis and perinephric edema involving the left kidney. There is a prominent stone in the left renal pelvis measuring 1.5 x 0.8 cm. 2. A few stable calcifications are again noted in the pancreas suggestive of chronic pancreatitis. This is unchanged from 2015. Lumbar Spine MRI 05/18/18 00:00 CONCLUSION: 1. Mild diffuse broad-based bulging and focal central disc bulging/protrusion at L5-S1. 2. Broad-based bulging at L1-2 and L4-5. 3. Bilateral facet arthritis at multiple levels. 4. Primary bony degenerative changes. Discharge Plan Discharge Disposition Patient Disposition: 01 Discharge Home Discharge Condition Condition: Stable Discharge Order Discharge Orders: Discharge Order (Routine); Ordered 05/18/18 Ordered By: Shad Wheeler Discharge Details Anticipated Discharge Date: 05/18/18 Physicians Team ED Provider: Erika Barker Primary Care Provider: Vitor Lawson Attending Provider: Shad Wheeler Other Providers: Nathan Brown ; Mignon Crow Rxs /Orders / Referrals /Forms Prescriptions: New levofloxacin [Levaquin] 750 mg tablet 750 mg PO DAILY 7 Days Qty: 7 RF: 0 Continue losartan 50 mg Tablet 50 mg PO BID RF: 0 metformin 500 mg Tablet 500 mg PO DAILY RF: 0 pravastatin 40 mg Tablet 40 mg PO HS RF: 0 aspirin [Aspir-81] 81 mg Tablet,Delayed Release (Dr/Ec) 81 mg PO DAILY RF: 0 gabapentin 300 mg Capsule 600 mg PO HS RF: 0 Referrals: Nathan Brown MD [Physician] - See Instructions (Please call for appointment for treatment of 1.5cm stone) Vitor Lawson MD [Primary Care Provider] - See Instructions Discharge Instructions Patient Printed Instructions: Levofloxacin (By mouth), Kidney Stones (DC), Renal Colic (ED), Flank Pain (ED) Additional Instructions: Follow up with Dr Brown in the office, please call Post Discharge Care Plan Care Plan Goals: Follow up with Dr Brown in the office, please call Your Health Problems: Goals to Promote Your Health: * To prevent worsening of your condition * To maintain your health at the optimal level Directions to Meet Your Goals: * Take your medications as prescribed * Follow your dietary instruction * Follow activity as directed * Keep your appointments as scheduled * Take your immunizations and boosters as scheduled * If your symptoms worsen call your PCP * If no PCP go to Urgent Care or Emergency Room Smoking is dangerous to your health. Avoid second hand smoke. You may reach the 24-hour crisis hotline for domestic abuse at . Status ED Status: Left Department
== END 2018-05-18 15:35 | disposition home or self-care (01) ==
LOC: PHED 09:20 → PHEDA 12:14 → PH3 12:58
PROVIDERS: ADMIT Internal Medicine; ATTEND Internal Medicine
DX: Z87.891 Personal history of nicotine dependence; Z88.5 Allergy status to narcotic agent; M51.26 Other intervertebral disc displacement, lumbar region; E78.00 Pure hypercholesterolemia, unspecified; N13.6 Pyonephrosis; E78.5 Hyperlipidemia, unspecified; E11.40 Type 2 diabetes mellitus with diabetic neuropathy, unspecified; I10 Essential (primary) hypertension; Z79.84 Long term (current) use of oral hypoglycemic drugs